=== PATIENT | female | born 1955 | race Caucasian/White ===

== ENCOUNTER 2023-03-13 08:08 | Emergency (ER) | payer OTHER ==
[~2023-03-13] VITALS: Ht 170.2 cm; Wt 74.0 kg
[~2023-03-13 08:08] MED LIST: ALPR0.5T7 PO; ASPI81CH43 PO; BUPR-160 PO; CAPT25TA5 PO; INSUINJ48 SC; LEV50T PO; LEVEMIR SC; METF-370 PO; OMEP20CA74 PO; SIMV-8 PO; TRAZ300T13 PO
[2023-03-13] MEDS ORDERED: SODIUM CHLORIDE 0.9% 500 ML IV ONE (08:30)
[2023-03-13 08:51] LABS: Basophils # (auto) 0.1 10 ^3/uL (0-0.2); Basophils % (auto) 0.5 % (0.0-2.0); Eosinophils # (auto) 0.1 10 ^3/uL (0-0.8); Eosinophils % (auto) 1.1 % (0.0-7.0); Hematocrit 39.3 % (36.0-46.0); Hemoglobin 12.7 g/dL (12.2-16.2); Lymphocytes # (auto) 0.4 10 ^3/uL (0.4-5.4); Lymphocytes % (auto) 4.3 % (10.0-50.0); Mean Corpuscular Hemoglobin 28.8 pg (28.0-32.0); Mean Corpuscular Hgb Conc. 32.4 g/dL (32.0-36.0); Mean Corpuscular Volume 88.9 fL (80.0-100.0); Monocytes # (auto) 0.5 10 ^3/uL (0-1.3); Monocytes % (auto) 4.7 % (0.0-12.0); Neutrophils # (auto) 9.3 10 ^3/uL (1.6-8.6); Neutrophils % (auto) 89.4 % (37.0-80.0); Red Blood Cells 4.42 10^6/uL (4.0-5.20); Red Cell Distribution Width 17.3 % (11.8-14.3); White Blood Cell 10.4 10^3/uL (4.4-10.8)
[2023-03-13 09:08] LABS: Albumin 3.7 g/dL (3.4-5.0); Calcium 9.3 mg/dL (8.5-10.1); Potassium 4.2 mmol/L (3.5-5.1)
[2023-03-13 09:12] LABS: BUN/Creatinine Ratio 17.9 (10.0-20.0); Bilirubin, Total 0.7 mg/dL (0.2-1.0); Total Protein 6.7 g/dL (6.4-8.2)
[2023-03-13 09:24] LABS: INR 1.03 (0.9-1.15); Partial Thromboplastin Time 28.9 sec (24.6-33.4)
[2023-03-13] MEDS ORDERED: HYDROmorphone HCL 2 MG/ML VL/or syr IV ONE (12:15)
[2023-03-13] MEDS ORDERED: HYDROcodone-ACET 10/325MG TAB PO ONE (14:00)
[2023-03-13] MEDS ORDERED: ONDANSETRON HCL 4 MG/2 ML VIAL IV ONE (14:00)
[2023-03-13 17:01] VITALS: BP 112/36
== END 2023-03-13 18:53 ==
LOC: EDBD 08:08 → ER 08:08
DX: S82.851A Displaced trimalleolar fracture of right lower leg, initial encounter for closed fracture (principal); I10 Essential (primary) hypertension; E11.9 Type 2 diabetes mellitus without complications; E03.9 Hypothyroidism, unspecified; E78.5 Hyperlipidemia, unspecified; R07.89 Other chest pain; Z20.822 Contact with and (suspected) exposure to COVID-19; Z90.89 Acquired absence of other organs; Z79.82 Long term (current) use of aspirin; Z79.4 Long term (current) use of insulin; Z79.899 Other long term (current) drug therapy; W18.39XA Other fall on same level, initial encounter; Y93.89 Activity, other specified; Y92.89 Other specified places as the place of occurrence of the external cause; Y99.8 Other external cause status
CPT/HCPCS: 29515; 36415; 71045; 73610; 80053; 85025; 85610; 85730; 87426; 96361; 96374; 96375; 99285; J1170; J2405; J7040

== ENCOUNTER 2023-04-08 07:34 | Day surgery (SDC) | payer OTHER ==
[~2023-04-08] VITALS: Ht 170.2 cm; Wt 73.5 kg
[~2023-04-08 07:34] MED LIST changes: +ALEN35TA18 PO; -BUPR-160 PO; +BUPR-346 PO; +METH2.5T PO; -SIMV-8 PO; +SIMV20TA20 PO
[2023-04-08] MEDS ORDERED: ePHEDrine SULFATE 50 MG/ML AMP IV ONE (07:35)
[2023-04-08] MEDS ORDERED: ceFAZolin 1GM/50ML 100 ML IV ONE (07:56)
[2023-04-08] MEDS ORDERED: fentaNYL CITRATE 100 MCG/2 ML VL ONE (10:57)
[2023-04-08] MEDS ORDERED: MIDAZOLAM HCL 2MG/2ML 2ml VIAL (1mg/ml) ONE (10:58)
[2023-04-08] MEDS ORDERED: MEPERIDINE HCL (50 MG/ML) 1 ML VIAL ONE (10:58)
[2023-04-08] MEDS ORDERED: HYDR1TAB97 PO ×2 (11:08→11:10)
[2023-04-08] MEDS ORDERED: CEPH-510 PO (11:42)
[2023-04-08] MEDS ORDERED: ASPI-498 OR (11:42)
[2023-04-08] MEDS ORDERED: BUPIVACAINE HCL 50 ML ONE (11:54)
[2023-04-08] MEDS ORDERED: PROPOFOL 10 MG/ML 20 ML IV ONE (12:04)
[2023-04-08] MEDS ORDERED: DexAMETHasone SOD PHOS 10MG/1ML VIAL INJ ONE (12:04)
[2023-04-08] MEDS ORDERED: ONDANSETRON HCL 4 MG/2 ML VIAL ONE (12:04)
[2023-04-08] MEDS ORDERED: ONDANSETRON HCL 4 MG/2 ML VIAL IV PRN (12:15)
[2023-04-08] MEDS ORDERED: ePHEDrine SULFATE 50 MG/ML AMP IV PRN (12:15)
[2023-04-08] MEDS ORDERED: LABETALOL HCL 5 MG/ML 4ML SYRINGE IV PRN (12:15)
[2023-04-08] MEDS ORDERED: MIDAZOLAM HCL 2MG/2ML 2ml VIAL (1mg/ml) IV PRN (12:15)
[2023-04-08] MEDS ORDERED: HYDROmorphone HCL 2 MG/ML VL/or syr IV PRN (12:15)
[2023-04-08] MEDS ORDERED: MORPHINE SULFATE 4 MG/ML SYR/VIAL IV PRN (12:15)
[2023-04-08] MEDS ORDERED: MEPERIDINE HCL (25 MG/ML) 1ML VIAL ONE (12:35)
[2023-04-08] MEDS ORDERED: DexAMETHasone SOD PHOS 4 MG/1ML SDV INJ ONE (13:22)
[2023-04-08] MEDS ORDERED: BUPIVACAINE W/ EPINEPH 0.25% INJ 50ML MDV ONE (13:22)
[2023-04-08] MEDS ORDERED: InsuLIN REG 1unit/0.01ml Soln (100units/ml) SC STA (14:00)
[2023-04-08] MEDS ORDERED: InsuLIN REG 1unit/0.01ml Soln (100units/ml) IV ONE (14:15)
[2023-04-08 16:45] VITALS: BP 124/71
[2023-04-08] MEDS ORDERED: KETOROLAC TROMETH 30 MG/ML 1ML VIAL IV ONE (17:00)
== END 2023-04-08 17:00 | disposition home or self-care (01) ==
LOC: SUR 07:34
PROVIDERS: ATTEND Orthopaedic Surgery Sports Medicine
DX: S82.841A Displaced bimalleolar fracture of right lower leg, initial encounter for closed fracture (principal); M81.0 Age-related osteoporosis without current pathological fracture; X58.XXXA Exposure to other specified factors, initial encounter; Y93.89 Activity, other specified; Y92.89 Other specified places as the place of occurrence of the external cause; Y99.8 Other external cause status; E06.3 Autoimmune thyroiditis; I10 Essential (primary) hypertension; E11.9 Type 2 diabetes mellitus without complications; Z79.899 Other long term (current) drug therapy; Z98.890 Other specified postprocedural states
CPT/HCPCS: 27814; 73600; 76000; 82962; C1713; C1769; J0690; J1100; J1815; J2175; J2250; J2405; J2704; J3010; J3490